=== PATIENT | female | born 1995 | race Caucasian/White ===

== ENCOUNTER 2018-09-12 21:05 | Emergency (ER) | payer OTHER, SELFPAY ==
[2018-09-12 21:05] VITALS: BP 127/84; PULSE 80; RESP 18; TEMP 36.9; O2SAT 99
--- NOTE | 2018-09-12 21:28 | DI.RAD.S_ITS ---
PROCEDURE: XR CHEST 2V INDICATIONS: chest pain TECHNIQUE: 2 views of the chest were acquired. COMPARISON: None. FINDINGS: Surgical changes and devices: None. Lungs and pleura: Lungs are clear. No pleural effusions or pneumothorax. Mediastinum: Mediastinal contours are normal. Heart size is normal. Bones and chest wall: No suspicious bony abnormalities. Soft tissues appear unremarkable. IMPRESSION: No acute cardiopulmonary findings. Dictated by: Sharee Holguin M.D. on 09/12/2018 at 22:01 Approved by: Sharee Holguin M.D. on 09/12/2018 at 22:02
[2018-09-12 22:00] VITALS: BP 120/71; PULSE 77; RESP 16; O2SAT 99
[2018-09-12 22:30] VITALS: BP 101/65; PULSE 84; RESP 21; O2SAT 99
[2018-09-12 23:08] VITALS: BP 101/56; PULSE 80; RESP 18; O2SAT 100
--- NOTE | 2018-09-13 03:31 | ED_ITS ---
HPI - Chest Pain General Chief Complaint: Chest Pain Stated Complaint: CHEST PAINS FOR 24 HOURS Time Seen by Provider: 09/12/18 21:14 Source: patient and family Mode of arrival: ambulatory Limitations: no limitations History of Present Illness HPI narrative: 22-year-old female, nonsmoker, otherwise healthy presents with a chief complaint of pinpoint sharp and stabbing pain under her left breast for the past 24 hr. Her pain is worse with deep breath or palpation. She is not dizzy nor weak or lightheaded. She denies any fever or chills. She denies any shortness of breath, recent travel or history of clots. She recently had bronchitis in was having significant cough. MD complaint: chest pain Duration: constant Pain location: left chest Severity: mild Quality: sharp Pain radiation: none Relieving factors: nothing Exacerbating factors: inspiration and palpation Context: recent illness Treatments prior to arrival chest pain: none Related Data On Oral Contraceptives: Yes Home Medications Medication Instructions Recorded Confirmed [MARIUSZ VASQUEZ] #0 08/26/08 [FISH OIL] #0 08/26/08 [FLAX SEED OIL] #0 08/26/08 [POLYGLUSINOL] #0 08/26/08 aspirin [Aspirin Low Dose] 81 mg PO PRN PRN 09/12/18 09/12/18 Previous Rx's Medication Instructions Recorded ketorolac 10 mg PO Q6H PRN #14 tab 09/12/18 Allergies Allergy/AdvReac Type Severity Reaction Status Date / Time Penicillins Allergy Verified 09/12/18 21:34 vancomycin Allergy Verified 09/12/18 21:34 Review of Systems Constitutional Denies chills, Denies fever(s), Denies lethargy and Denies weakness Eyes Denies change in vision, Denies eye discharge, Denies irritation and Denies loss of vision ENT Ears, Nose, Mouth, and Throat: Denies change in voice, Denies neck pain and Denies sore throat Cardiovascular Reports chest pain, Denies irregular heart rhythm, Denies lightheadedness, Denies palpitations, Denies dyspnea, Denies dyspnea on exertion and Denies orthopnea Respiratory Denies cough, Reports pain on inspiration, Denies dyspnea, Denies dyspnea on exertion and Denies wheezing Gastrointestinal Gastrointestinal: Denies abdominal pain, Denies change in bowel habits, Denies diarrhea, Denies nausea and Denies vomiting Genitourinary Denies hematuria, Denies flank pain, Denies urinary incontinence and Denies urinary urgency Musculoskeletal Denies neck pain Integumentary/Breasts Denies pruritus, Denies erythema, Denies rash and Denies wounds Neurologic Denies confusion, Denies loss of vision and Denies weakness Psychiatric Denies anxiety, Denies confusion, Denies depression, Denies homicidal ideation and Denies suicidal ideation Endocrine Denies palpitations Hematologic/Lymphatic Denies easy bruising Allergic/Immunologic Denies wheezing PFSH Social History Smoking Status: Never smoker Social History Smoking Status: Never smoker Exam Narrative Exam Narrative: GEN: AOx3 and in mild distress EYES: Pupils are equal, round, and reactive to light and accommodation. Extraoccular muscles are intact bilaterally. There is no subconjunctival hemorrhage or exudate. CHEST: Lungs are clear to auscultation bilaterally and free of wheezes, rales, or rhonchi. Heart rate is regular rhythm, there are no murmurs, clicks, rubs, or gallops. Chest pain with palpation under left breast ABD: Abdomen is soft and nontender. There is no guarding or rebound. Bowel sounds are normal in all 4 quadrants. There is no mass or organomegaly. EXT: Full painless ROM of all extremities with no loss of sensation or strength. SKIN: Warm, pink, and dry. No erythema or rash Initial Vital Signs Initial Vital Signs: Vital Signs Temperature 98.4 F 09/12/18 21:05 Pulse Rate 80 09/12/18 21:05 Respiratory Rate 18 09/12/18 21:05 Blood Pressure 127/84 09/12/18 21:05 Pulse Oximetry 99 09/12/18 21:05 Course Orders Ordered: ED Orders 09/12/18 21:28 XR chest 2V Stat 09/12/18 21:29 EKG-12 Lead Stat Vital Signs - 8 hr 09/12/18 21:05 09/12/18 22:00 09/12/18 22:30 Temperature 98.4 F Pulse Rate 80 77 84 Respiratory Rate 18 16 21 Blood Pressure 127/84 Blood Pressure [Left Arm] 120/71 101/65 Pulse Oximetry 99 99 99 09/12/18 23:08 Temperature Pulse Rate 80 Respiratory Rate 18 Blood Pressure 101/56 L Blood Pressure [Left Arm] Pulse Oximetry 100 MDM - Chest Pain Differential Diagnosis Likely fracture of rib, pneumothorax, stable angina, unstable angina pectoris, atypical chest pain, st elevation myocardial infarction and costochondritis Imaging Data Chest x-ray: Radiologist's impression: [address] [address] XRay Report Signed Patient: Gail Arias RMR#: [id number] : 1995Acct:[id number] Age/Sex: 22 / FDate of Service: 09/12/18 Loc: ED Accession Number: [id number] Procedure: XR chest 2V Ordering Provider: Kervin Vora D.O. PROCEDURE: XR CHEST 2V INDICATIONS: chest pain TECHNIQUE: 2 views of the chest were acquired. COMPARISON: None. FINDINGS: Surgical changes and devices: None. Lungs and pleura: Lungs are clear. No pleural effusions or pneumothorax. Mediastinum: Mediastinal contours are normal. Heart size is normal. Bones and chest wall: No suspicious bony abnormalities. Soft tissues appear unremarkable. IMPRESSION: No acute cardiopulmonary findings. Dictated by: Sharee Holguin M.D. on 09/12/2018 at 22:01 Approved by: Sharee Holguin M.D. on 09/12/2018 at 22:02 ECG Data Attestation: I personally reviewed and interpreted this ECG as follows: Prior ECG tracings: not available for review Interpretation: EKG is normal sinus rhythm rate and free of any signs of ischemia or ectopy. No ST segmental elevation or depression. No T wave inversions Discharge Plan Departure Patient Disposition: Home Clinical Impression: Acute costochondritis Discharge Date/Time: 09/12/18 22:55 Interventions: ED Discharge Assessment Last Done: 09/12/18 23:08 Instructions: DI for Costochondritis Activity Restrictions/Additional Instructions: *You have been diagnosed with [ acute atypical chest pain, likely costochondritis ] *What to do: *Take medications as directed *Follow up with your primary care provider in 2-3 days, call for an appointment. Let them know you were seen in the Emergency Department and that we ask that you be seen in follow up *Return to ER if you should have any new, worsening or concerning symptoms Prescriptions: New ketorolac 10 mg tablet 10 mg PO Q6H PRN (Reason: pain) Qty: 14 RF: 0 No Action [FLAX SEED OIL] Qty: 0 RF: 0 [MARIUSZ VASQUEZ] Qty: 0 RF: 0 [FISH OIL] Qty: 0 RF: 0 [POLYGLUSINOL] Qty: 0 RF: 0 aspirin [Aspirin Low Dose] 81 mg Tablet,Delayed Release (Dr/Ec) 81 mg PO PRN PRN (Reason: chest pain) RF: 0
== END 2018-09-12 22:55 | disposition home or self-care (01) ==
LOC: ED 23:19
PROVIDERS: Emergency Provider Emergency Medicine
DX: M94.0 Chondrocostal junction syndrome [Tietze] (principal)
CPT/HCPCS: 71046; 93005; 99282; 99284